=== PATIENT | male | born 1995 | race Caucasian/White ===

== ENCOUNTER 2020-03-29 16:37 | Emergency (ER) | payer BC ==
[~2020-03-29] VITALS: Ht 167.6 cm; Wt 73.2 kg
[2020-03-29] MEDS ORDERED: LIDOCAINE 2% MDV 20ML VIAL SC ONE (17:45)
[2020-03-29] MEDS ORDERED: DOXYCYCLINE HYCLATE 100MG TABLET PO ONE (18:45)
[2020-03-29] MEDS ORDERED: DOXY100C37 PO (18:47)
[2020-03-29 18:53] VITALS: BP 142/79
== END 2020-03-29 19:01 | disposition home or self-care (01) ==
LOC: M ED 16:37
DX: L60.0 Ingrowing nail (principal); L03.032 Cellulitis of left toe

== ENCOUNTER 2020-08-18 13:56 | Inpatient (IN) | payer BC, OTHER ==
[~2020-08-18] VITALS: Ht 167.6 cm; Wt 80.7 kg
[~2020-08-18 13:56] MED LIST: DOXY100C37 PO
[2020-08-18] MEDS ORDERED: CEPH500C PO (14:03)
--- NOTE | 2020-08-18 14:46 | REP ---
INDICATION: R/O FB. COMPARISON: None. TECHNIQUE: AP and lateral views of the right forearm are provided. FINDINGS: AP and latter views of the oral right forearm demonstrate normal bones, joints, and soft tissues. No fracture or subluxation is seen. No opaque foreign body noted. IMPRESSION: Negative right forearm series. <Electronically signed by Mo Russo > 08/18/20 [id number]
--- NOTE | 2020-08-18 14:47 | REP ---
INDICATION: R/O FB. COMPARISON: None. TECHNIQUE: Four views of the right elbow are provided. FINDINGS: Four views of the right elbow demonstrate soft tissue swelling about the medial epicondyle. There is no evidence of joint effusion.. No fracture or subluxation is seen. No opaque foreign body noted. IMPRESSION: Soft tissue swelling about the medial epicondyle. No fracture, subluxation or joint effusion evident.. <Electronically signed by Mo Russo > 08/18/20 [id number]
[2020-08-18 15:43] LABS: BASO % 0.4 % (0.0-1.0); EOS # 0.1 10^3/uL (0.0-0.5); EOS % 2.1 % (0.0-3.0); HEMATOCRIT 44.9 % (42.0-52.0); HEMOGLOBIN 15.2 g/dl (13.5-17.5); LYMPH # 1.5 10^3/uL (1.5-5.0); LYMPH % 21.7 % (24.0-44.0); MEAN CORPUSCULAR HEMOGLOBIN 30.8 pg (27.0-33.0); MEAN CORPUSCULAR HGB CONC 33.9 g/dl (32.0-36.5); MEAN CORPUSCULAR VOLUME 91.1 fl (80.0-96.0); MONO # 0.6 10^3/uL (0.0-0.8); MONO % 8.8 % (2.0-8.0); NEUTROPHILS # 4.4 10^3/uL (1.5-8.5); NEUTROPHILS % 66.7 % (36.0-66.0); PLATELET COUNT, AUTOMATED 295 10^3/uL (150-450); RED BLOOD COUNT 4.93 10^6/uL (4.30-6.10); WHITE BLOOD COUNT 6.7 10^3/uL (4.0-10.0)
[2020-08-18] MEDS ORDERED: VANCOMYCIN HCL 1,500 MG in NS 250 ML IV ONE (15:55)
[2020-08-18] MEDS ORDERED: VANCOMYCIN HCL 750 MG, VIAL MATE ADAPTER 1 EACH in NS 250 ML IV ONE ×2 (16:00→17:00)
[2020-08-18 16:05] LABS: BLOOD UREA NITROGEN 9 MG/DL (7-18); C REACTIVE PROTEIN QUANTITATIV 0.84 MG/DL (0.00-0.30); CALCIUM LEVEL 8.7 MG/DL (8.5-10.1); CARBON DIOXIDE LEVEL 30 MEQ/L (21-32); CHLORIDE LEVEL 106 MEQ/L (98-107); CREATININE FOR GFR 0.88 MG/DL (0.70-1.30); GLOMERULAR FILTRATION RATE > 60.0 (>60); GLUCOSE, FASTING 79 MG/DL (70-100); SODIUM LEVEL 143 MEQ/L (136-145)
[2020-08-18 16:27] LABS: ERYTHROCYTE SEDIMENTATION RATE 11 mm/hr (0-15)
--- NOTE | 2020-08-18 16:33 | REP ---
INDICATION: right pain and swelling s/p FB ?absess. Patient gives a history of puncture wound with copper wired 2 days ago with area of cyst swelling and pain. COMPARISON: None. TECHNIQUE: Targeted soft tissue sonography in the right elbow region in the area of pain and swelling. FINDINGS: Soft tissue sonography demonstrates soft tissue subcutaneous edema. No abnormal fluid collection is seen. There is no evidence of shadowing or other evidence to suggest foreign body. IMPRESSION: No evidence of abscess or foreign body seen. Diffuse subcutaneous swelling. <Electronically signed by Mo Russo > 08/18/20 [id number]
--- NOTE | 2020-08-18 16:59 | HPEPDOC ---
[facility] Medical History & Physical Date of Admission Aug 18, 2020 Date of Service: Aug 18, 2020 History and Physical CHIEF COMPLAINT: right arm swelling HISTORY OF PRESENT ILLNESS: 24-year-old male presents for worsening right arm swelling. Patient had a penetrating wound with piece of wire stuck in his arm three days ago. He sought medical care at an urgent care facility and was prescribed antibiotics, and received a tetanus shot. His symptoms continued to worsen and as such presented to the emergency department. Presently, he denies chest pain, shortness of breath, abdominal pain, nausea, vomiting, diarrhea. PAST MEDICAL HISTORY: Denies PAST SURGICAL HISTORY: Denies SOCIAL HISTORY: Reviewed and noncontributory FAMILY HISTORY: Reviewed and noncontributory ALLERGIES: Please see below. REVIEW OF SYSTEMS: Except as per HPI. HOME MEDICATIONS: Please see below. PHYSICAL EXAMINATION: VITAL SIGNS: See below General: NAD, lying comfortably in bed HEENT: NC/AT, EOMI Lungs: CTA B/L Heart: +S1S2, RRR, -M/R/G Abd: soft, NT, +Bs Ext: no edema, right arm warm to touch; erythematous regions symmetric on bilateral upper extremities, peripheral pulses equal and brisk b/l upper extremities Neuro: no gross focal deficits, sensation intact b/l ue, strength 5/5, full ROM Psych: AAOx3 LABORATORY DATA: See below. IMAGING: MICROBIOLOGY: Please see below. A/P: A 4-year-old male presenting for worsening right arm swelling related to a penetrating copper wire that was stuck in his arm several days ago. He has failed outpatient therapy with oral antimicrobial therapy. #right arm cellulitis - IV vancomycin - follow WBC and inflammatory markers #DVT prophylaxis - not indicated Vital Signs Vital Signs Date Time Temp Pulse Resp B/P (MAP) Pulse Ox O2 Delivery O2 Flow Rate FiO2 08/18/20 15:24 08/18/20 13:57 98.5 92 17 98 Room Air Laboratory Data Labs 24H Laboratory Tests 2 08/18/20 15:22: Immature Granulocyte % (Auto) 0.3, Neutrophils (%) (Auto) 66.7H, Lymphocytes (%) (Auto) 21.7L, Monocytes (%) (Auto) 8.8H, Eosinophils (%) (Auto) 2.1, Basophils (%) (Auto) 0.4, Neutrophils # (Auto) 4.4, Lymphocytes # (Auto) 1.5, Monocytes # (Auto) 0.6, Eosinophils # (Auto) 0.1, Basophils # (Auto) 0.0, Nucleated Red Blood Cells % (auto) 0.0, Erythrocyte Sedimentation Rate 11, Anion Gap 7L, Glomerular Filtration Rate > 60.0, Calcium Level 8.7, C-Reactive Protein, Quantitative 0.84H CBC/BMP Laboratory Tests 08/18/20 15:22 Microbiology Microbiology 08/18/20 Blood Culture, Received Pending 08/18/20 Blood Culture, Received Pending Home Medications Scheduled Cephalexin (Cephalexin) 500 Mg Capsule, 500 MG PO TID Allergies Coded Allergies: No Known Allergies (Unverified , 08/18/20) A-FIB/CHADSVASC A-FIB History Current/History of A-Fib/PAF?: No HAKEEM ARITA MD Aug 18, 2020 16:56
[2020-08-18 18:42] LABS: RSV AMPLIFICATION NEGATIVE (NEGATIVE)
[2020-08-18 20:20] VITALS: BP 117/76
[2020-08-19 06:16] VITALS: BP 127/62
[2020-08-19 06:53] LABS: HEMATOCRIT 41.2 % (42.0-52.0); MEAN CORPUSCULAR VOLUME 91.2 fl (80.0-96.0); PLATELET COUNT, AUTOMATED 263 10^3/uL (150-450); RED BLOOD COUNT 4.52 10^6/uL (4.30-6.10); WHITE BLOOD COUNT 7.1 10^3/uL (4.0-10.0)
[2020-08-19 07:10] LABS: ALBUMIN 3.2 GM/DL (3.2-5.2); ALT/SGPT 24 U/L (12-78); BILIRUBIN,TOTAL 1.2 MG/DL (0.2-1.0); BLOOD UREA NITROGEN 11 MG/DL (7-18); C REACTIVE PROTEIN QUANTITATIV 0.66 MG/DL (0.00-0.30); CALCIUM LEVEL 8.1 MG/DL (8.5-10.1); CARBON DIOXIDE LEVEL 29 MEQ/L (21-32); CHLORIDE LEVEL 105 MEQ/L (98-107); CREATININE FOR GFR 0.81 MG/DL (0.70-1.30); GLOMERULAR FILTRATION RATE > 60.0 (>60); GLUCOSE, FASTING 98 MG/DL (70-100); POTASSIUM SERUM 3.9 MEQ/L (3.5-5.1); SODIUM LEVEL 140 MEQ/L (136-145); TOTAL PROTEIN 6.5 GM/DL (6.4-8.2)
[2020-08-19] MEDS ORDERED: VANCOMYCIN HCL 1,000 MG, VIAL MATE ADAPTER 1 EACH in NS 250 ML IV SCH (08:00)
[2020-08-19 08:02] LABS: VANCOMYCIN RANDOM 4.3 UG/ML
[2020-08-19 08:17] LABS: ERYTHROCYTE SEDIMENTATION RATE 10 mm/hr (0-15)
[2020-08-19] MEDS ORDERED: VANCOMYCIN HCL 750 MG, VIAL MATE ADAPTER 1 EACH in NS 250 ML IV ONE (09:00)
[2020-08-19] MEDS ORDERED: DOXY100C PO (13:21)
== END 2020-08-19 14:40 | disposition home or self-care (01) | DRG 383 ==
LOC: M ED 13:56 → M ED INP 17:10 → ENRESERV 19:00 → M MS5PR 20:20
PROVIDERS: ADMIT Internal Medicine; ATTEND Internal Medicine
DX: L03.113 Cellulitis of right upper limb (principal); S41.131A Puncture wound without foreign body of right upper arm, initial encounter; W26.8XXA Contact with other sharp object(s), not elsewhere classified, initial encounter; Y92.69 Other specified industrial and construction area as the place of occurrence of the external cause

== ENCOUNTER → 2024-11-10 | Outpatient (CLI) | payer MEDICAID ==
[~2024-11-10] MED LIST changes: +CEPH500C PO; +DOXY-441 PO; +DOXY100C3 PO; -DOXY100C37 PO; +OXYC1TAB23 PO
[2024-11-10 18:55] LABS: PLATELET COUNT, AUTOMATED 319 10^3/uL (150-450)
[2024-11-10 19:18] LABS: LDH LACTATE DEHYDROGENASE 247 U/L (120-246)
[2024-11-10 19:19] LABS: CALCIUM LEVEL 9.6 MG/DL (8.5-10.1); CARBON DIOXIDE LEVEL 28 MMOL/L (20-31); CHLORIDE LEVEL 102 MMOL/L (98-107); CREATININE FOR GFR 0.89 MG/DL (0.70-1.30); GLOMERULAR FILTRATION RATE > 90.0 (>60); POTASSIUM SERUM 4.0 MMOL/L (3.5-5.1); SODIUM LEVEL 140 MMOL/L (136-145)
== END ==
LOC: M PLAIMG 16:20
PROVIDERS: ATTEND Physician Assistant
DX: Z01.818 Encounter for other preprocedural examination (principal); N50.89 Other specified disorders of the male genital organs

== ENCOUNTER 2024-11-13 14:55 | Day surgery (SDC) | payer MEDICAID ==
[~2024-11-13] VITALS: Ht 177.8 cm; Wt 92.6 kg
[~2024-11-13 14:55] MED LIST changes: -OXYC1TAB23 PO
[2024-11-13] MEDS: LR 1,000 ML IV SCH (15:37)
[2024-11-13] MEDS ORDERED: dexmedeTOMIDine (4 MCG/ML) 200 MCG/50 ML BTL As Ordered ONE (16:11)
[2024-11-13] MEDS ORDERED: ONDANSETRON 4MG 2ML VIAL As Ordered ONE (16:21)
[2024-11-13] MEDS ORDERED: dexAMETHasone 4 MG/ML 1 ML VIAL As Ordered ONE (16:21)
[2024-11-13] MEDS ORDERED: LIDOCAINE 2% 100 MG/5 ML SDV (FOR ANES.) As Ordered ONE (16:21)
[2024-11-13] MEDS ORDERED: MIDAZOLAM INJ 2 MG/2 ML VIAL As Ordered ONE (17:01)
[2024-11-13] MEDS ORDERED: OXYC1TAB23 PO (17:13)
[2024-11-13] MEDS: ceFAZolin SOD 2 GM IV ONCE IV ONE (17:15)
[2024-11-13] MEDS ORDERED: ACETAMINOPHEN 1000MG/100ML IV BAG As Ordered ONE (17:22)
[2024-11-13] MEDS ORDERED: KETOROLAC 30 MG/ML 1 ML VIAL As Ordered ONE (18:24)
[2024-11-13] MEDS ORDERED: HYDROmorphone HCL 2 MG/ML 1 ML VIAL As Ordered ONE (18:28)
[2024-11-13] MEDS ORDERED: LR 1,000 ML IV SCH (18:45)
[2024-11-13] MEDS ORDERED: HYDROMORPHONE HCL 0.5 MG/0.5 ML SYRINGE IV PRN (18:45)
[2024-11-13] MEDS: ONDANSETRON 4MG 2ML VIAL IV PRN (19:33)
[2024-11-13 20:41] VITALS: BP 133/72; TEMP 97.4; O2SAT 98
== END 2024-11-13 20:50 | disposition home or self-care (01) ==
LOC: M SDC 14:55
PROVIDERS: ATTEND Urology
DX: C62.11 Malignant neoplasm of descended right testis (principal)
CPT/HCPCS: 54530; 88309; J0131; J0665; J0690; J1100; J1171; J1885; J2250; J2405; J3010

== ENCOUNTER → 2024-11-30 | Outpatient (CLI) | payer MEDICAID ==
[~2024-11-30] MED LIST changes: +ISOVUE-370 76% 100 ML VIAL As Ordered ONE; +OXYC1TAB23 PO
== END ==
LOC: M RAD 16:13
PROVIDERS: ATTEND Physician Assistant
DX: C62.11 Malignant neoplasm of descended right testis (principal)
CPT/HCPCS: 71260; 74177; Q9967

== ENCOUNTER → 2024-12-22 | Outpatient (CLI) | payer MEDICAID, OTHER ==
[~2024-12-22] MED LIST changes: -ISOVUE-370 76% 100 ML VIAL As Ordered ONE
[2024-12-22 14:33] LABS: LDH LACTATE DEHYDROGENASE 159.0 U/L (120-246)
== END ==
LOC: M PLALAB 10:17
PROVIDERS: ATTEND Surgery
DX: C62.11 Malignant neoplasm of descended right testis (principal)